=== PATIENT | male | born 1975 | race Caucasian/White ===

== ENCOUNTER 2022-11-17 18:34 | Emergency (ER) | payer OTHER, MEDICAID, SELFPAY ==
[2022-11-17 18:42] VITALS: BP 138/83; PULSE 85; RESP 14; TEMP 36.5; O2SAT 97
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
[2022-11-17 20:21] LABS: Basophils % 0.4 %; Eosinophils # 0.3 10^3/uL (0.0-0.8); Eosinophils % 5.2 %; Hemoglobin 13.3 g/dL (11.7-16.6); Lymphocytes # 1.2 10^3/uL (0.8-4.8); Mean Corpuscular HGB Conc 34.1 g/dL (30.0-36.0); Mean Corpuscular Hemoglobin 30.4 pg (28.0-34.0); Mean Corpuscular Volume 89.2 fl (80-94); Mean Platelet Volume 10.2 fL (7.4-10.4); Monocytes # 0.5 10^3/uL (0.2-0.9); Monocytes % 10.7 %; Neutrophils % 58.5 %; Nucleated Red Blood Cells % 0 %; Platelet Count 216 10^3/cmm (130-400); Red Blood Count 4.37 10^6/uL (4.1-5.3); Red Cell Distribution Width 12.8 % (12.1-15.1)
[2022-11-17] MEDS: HYDROcodone-acetaminophen 5-325 mg Tablet 1 TAB PO (20:28)
[2022-11-17 20:39] LABS: Alanine Aminotransferase 17 U/L (0-41); Alkaline Phosphatase 99 U/L (40-130); Anion Gap 12.5 (5-19); Aspartate Amino Transferase 21 U/L (0-40); Blood Urea Nitrogen 14 mg/dL (6-20); Calcium 8.9 mg/dL (8.5-10.5); Carbon Dioxide 27 mmol/L (22-29); Chloride 107 mmol/L (98-107); Globulin 2.6 g/dL (1.3-4.6); Glomerular Filtration Rate 90.4 mL/min (90-130); Glucose 93 mg/dL (65-115); Lactate (Lactic Acid level) 1.3 mmol/L (0.5-2.2); Osmolality Calculated 294 mOsm/kg (285-295); Potassium 4.5 mmol/L (3.5-5.1); Sodium 142 mmol/L (136-145); Total Bilirubin 0.2 mg/dL (0.15-1.2); Total Protein 6.6 g/dL (6.6-8.7)
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
[2022-11-17] MEDS: clindamycin 150 mg Capsule 300 MG PO (20:58)
[2022-11-17] MEDS: tetanus-dipt-pertussis 0.5 mL SDV IM (20:59)
--- NOTE | 2022-11-18 09:43 | DCPLANNER ---
Addendum entered by Angela Dobbs 12/04/22 10:58: Patient had a follow up appointment scheduled with ortho - patient did attend appointment. Addendum entered by Angela Dobbs 11/24/22 14:50: Patient has a follow up appointment scheduled for , November 26, 2022 at 3:[address] Arreola at ortho. Clinic will call patient with appointment information. Original Note: meat market manager had message to schedule a follow up appointment for patient with ortho. meat market manager sent patients information to the front office staff at ortho. Patients information will be printed and reviewed. Clinic will call patient with appointment information.
== END 2022-11-17 21:03 | disposition home or self-care (01) ==
PROVIDERS: Emergency Provider Nurse Practitioner Family
DX: L03.011 Cellulitis of right finger (principal); Z23 Encounter for immunization
CPT/HCPCS: 26010; 73140; 80053; 83605; 85025; 87070; 87077; 87186; 90471; 90715; 99284

== ENCOUNTER 2022-11-19 03:25 | Emergency (ER) | payer OTHER, MEDICAID, SELFPAY ==
[2022-11-19 03:34] VITALS: BP 136/89; PULSE 84; RESP 20; TEMP 37.2; O2SAT 98; BMI 23.0
--- NOTE | 2022-11-19 03:40 | W.ED.SKABFB ---
HPI - Skin/Abscess/Foreign Bdy General: Chief complaint: Skin/Abscess/Foreign Body Stated complaint: Finger Infected, CP Time Seen by Provider: 11/19/22 03:27 Source: patient Mode of arrival: ambulatory Limitations: no limitations History of Present Illness: 47-year-old male states he has had swelling to his right middle finger over the last 3 weeks he appears to have an abscess over the PIP joint he states that he has tried to put a needle in it at home patient was seen here 2 days ago started on clindamycin he has had increasing pain no fever. Associated symptoms: Deny chills, fever(s), nausea or vomiting Review of Systems Const: Denies: fever(s), chills, body aches or change in appetite Eyes: Denies: blurry vision or eye discomfort ENMT: Denies: throat pain or dental pain Card: Denies: chest pain Resp: Denies: dyspnea GI: Denies: abdominal pain, nausea, vomiting or diarrhea : Denies: dysuria Musc: Reports: extremity pain Skin/Breast: Denies: rash Neuro: Denies: headache(s) Psych: Denies: depression Reji/Lymph: Denies: easy bruising All/Imm: Denies: urticaria PFSH ED PFSH: Medical History (Updated 11/19/22 @ 04:29 by Gail Foley MD) No pertinent past medical history Social History (Updated 11/19/22 @ 03:42 by Gail Foley MD) Substance/Drug Use: unknown Physical Exam Const: COMMON NORMALS: patient oriented x3 HENMT: COMMON NORMALS: normocephalic and atraumatic HEAD & SCALP: normocephalic and atraumatic Eye: COMMON NORMALS: Equal, round and reactive pupils present and EOMs intact bilaterally PUPIL: Yes Equal, round and reactive pupils present Neck/C-Spine: COMMON NORMALS: full ROM and supple Chest: COMMONS NORMALS: normal inspection of the chest and normal palpation of entire chest wall Resp: COMMON NORMALS: normal respiratory effort, No retractions, No use of accessory muscles and clear to auscultation bilaterally AUSCULTATION: clear to auscultation bilaterally Cardio: COMMON NORMALS: regular rate, regular rhythm and No murmurs present (Cardio) RATE: regular rate RHYTHM: regular rhythm GI: COMMON NORMALS: Normal to inspection, nondistended, normoactive bowel sounds present, Soft to palpation, non-tender and no masses PALPATION: Yes Soft to palpation Extremity: COMMON NORMALS: full ROM NARRATIVE EXTREMITY EXAM: Swelling to right middle finger at the PIP joint with an abscess Neuro: COMMON NORMALS: patient oriented x3, moves all extremities and no focal motor deficits Psych: COMMON NORMALS: mental status grossly normal, Normal thought process present and cooperative THOUGHT PROCESS: Normal thought process present Skin: COMMON NORMALS: no rashes or lesions noted and no wounds GENERAL SKIN EXAM: no rashes or lesions noted Procedures Abscess I/D Site: hand Side (if applicable): right Local Anesthetic: lidocaine 1% Amount of anesthesia used (mL): 5 Technique: incised with #11 blade Packing used?: none Course Vital Signs: Vital signs: Vital Signs Temperature 98.9 F 11/19/22 03:34 Pulse Rate 84 11/19/22 03:34 Respiratory Rate 20 H 11/19/22 03:34 Blood Pressure 136/89 11/19/22 03:34 Pulse Oximetry 98 11/19/22 03:34 Oxygen Delivery Me thod 11/19/22 03:34 MDM - Skin/Abscess/Foreign Bdy Medicial Decision Making Patient presents here with abscess to right middle finger I incised and drained the abscess he is inflammatory markers are normal he stable for discharge he is to follow-up with orthopedics return if worsening. Lab Data 11/19/22 03:52 11/19/22 03:52 Laboratory Results WBC 4.0 10^3/uL (4.0-10.0) 11/19/22 03:52 RBC 4.66 10^6/uL (4.1-5.3) 11/19/22 03:52 Hgb 13.8 g/dL (11.7-16.6) 11/19/22 03:52 Hct 42.0 % (42.0-52.0) 11/19/22 03:52 MCV 90.1 fl (80-94) 11/19/22 03:52 MCH 29.6 pg (28.0-34.0) 11/19/22 03:52 MCHC 32.9 g/dL (30.0-36.0) 11/19/22 03:52 RDW 13.0 % (12.1-15.1) 11/19/22 03:52 Plt Count 203 10^3/cmm (130-400) 11/19/22 03:52 MPV 10.1 fL (7.4-10.4) 11/19/22 03:52 Neut % (Auto) 43.5 % 11/19/22 03:52 Lymph % (Auto) 35.9 % 11/19/22 03:52 [place] % (Auto) 12.0 % 11/19/22 03:52 Eos % (Auto) 7.7 % 11/19/22 03:52 Baso % (Auto) 0.7 % 11/19/22 03:52 Neut # (Auto) 1.74 10^3/uL (1.8-7.7) L 11/19/22 03:52 Lymph # (Auto) 1.4 10^3/uL (0.8-4.8) 11/19/22 03:52 [place] # (Auto) 0.5 10^3/uL (0.2-0.9) 11/19/22 03:52 Eos # (Auto) 0.3 10^3/uL (0.0-0.8) 11/19/22 03:52 Baso # (Auto) 0.0 10^3/uL (0.0-0.1) 11/19/22 03:52 Nucleated RBC % (auto) 0 % 11/19/22 03:52 Nucleated RBCs # 0.0 /100WBC 11/19/22 03:52 ESR 4 mm/hr (0-10) 11/19/22 03:52 Sodium 140 mmol/L (136-145) 11/19/22 03:52 Potassium 3.9 mmol/L (3.5-5.1) 11/19/22 03:52 Chloride 102 mmol/L (98-107) 11/19/22 03:52 Carbon Dioxide 29 mmol/L (22-29) 11/19/22 03:52 Anion Gap 12.9 (5-19) 11/19/22 03:52 BUN 12 mg/dL (6-20) 11/19/22 03:52 Creatinine 0.8 mg/dL (0.7-1.2) 11/19/22 03:52 GFR Calculation 103.6 mL/min (90-130) 11/19/22 03:52 Glucose 98 mg/dL (65-115) 11/19/22 03:52 Calculated Osmolality 290 mOsm/kg (285-295) 11/19/22 03:52 Calcium 9.4 mg/dL (8.5-10.5) 11/19/22 03:52 Total Bilirubin 0.2 mg/dL (0.15-1.2) 11/19/22 03:52 AST 24 U/L (0-40) 11/19/22 03:52 ALT 23 U/L (0-41) 11/19/22 03:52 Alkaline Phosphatase 93 U/L (40-130) 11/19/22 03:52 C-Reactive Protein 6.9 mg/L (0.0-4.9) H 11/19/22 03:52 Total Protein 6.9 g/dL (6.6-8.7) 11/19/22 03:52 Albumin 4.1 g/dL (3.5-5.2) 11/19/22 03:52 Globulin 2.8 g/dL (1.3-4.6) 11/19/22 03:52 Discharge Plan Discharge Patient Disposition: Home Clinical Impression: Abscess of finger Condition: Stable Prescriptions: No Action clindamycin HCl 300 mg capsule 300 mg PO TID 10 Days Qty: 30 0RF Discharge Orders: Discharge ED (Routine); Ordered 11/19/22 Ordered By: Gail Foley Referrals: Hoang Arreola DO [Physician] - 1-3 days Discharge Diet: Advance as tolerated Discharge Activity: Resume usual activity Patient Instructions: Abscess (ED) Coding Level of Care Code ED Gear Milling Machine Set Up Operator for Chg Fwd Exam Comprehensive
[2022-11-19] MEDS: vancomycin 1,000 MG in sodium chloride 0.9% 250 ML 250 MG IV (03:55)
[2022-11-19 03:59] LABS: Basophils % 0.7 %; Eosinophils # 0.3 10^3/uL (0.0-0.8); Eosinophils % 7.7 %; Hemoglobin 13.8 g/dL (11.7-16.6); Lymphocytes # 1.4 10^3/uL (0.8-4.8); Lymphocytes % 35.9 %; Mean Corpuscular HGB Conc 32.9 g/dL (30.0-36.0); Mean Corpuscular Hemoglobin 29.6 pg (28.0-34.0); Mean Corpuscular Volume 90.1 fl (80-94); Mean Platelet Volume 10.1 fL (7.4-10.4); Monocytes # 0.5 10^3/uL (0.2-0.9); Neutrophils # 1.74 10^3/uL (1.8-7.7); Neutrophils % 43.5 %; Nucleated Red Blood Cells % 0 %; Platelet Count 203 10^3/cmm (130-400); Red Blood Count 4.66 10^6/uL (4.1-5.3)
[2022-11-19 04:00] LABS: Erythrocyte Sedimentation Rate 4 mm/hr (0-10)
[2022-11-19 04:14] LABS: Alanine Aminotransferase 23 U/L (0-41); Albumin Level 4.1 g/dL (3.5-5.2); Alkaline Phosphatase 93 U/L (40-130); Anion Gap 12.9 (5-19); Aspartate Amino Transferase 24 U/L (0-40); Blood Urea Nitrogen 12 mg/dL (6-20); C Reactive Protein 6.9 mg/L (0.0-4.9); Calcium 9.4 mg/dL (8.5-10.5); Carbon Dioxide 29 mmol/L (22-29); Chloride 102 mmol/L (98-107); Globulin 2.8 g/dL (1.3-4.6); Glomerular Filtration Rate 103.6 mL/min (90-130); Glucose 98 mg/dL (65-115); Osmolality Calculated 290 mOsm/kg (285-295); Potassium 3.9 mmol/L (3.5-5.1); Sodium 140 mmol/L (136-145); Total Bilirubin 0.2 mg/dL (0.15-1.2); Total Protein 6.9 g/dL (6.6-8.7)
[2022-11-19 05:08] VITALS: BP 128/82; PULSE 82; RESP 18; O2SAT 98
--- NOTE | 2022-11-19 09:12 | DCPLANNER ---
incident manager had message to schedule a follow up appointment for patient with ortho. incident manager has referred patient to ortho from previous visit on 11.17.22. incident manager sent patients information to the front office staff at ortho. incident manager received the following message from the ortho clinic regarding referral: attempt made to contact patient - a woman answered the line and said he wasn't there, i tried to ask her to have him call us but the connection was bad and she hung up. tried to call again no answer. i will mail a letter to call our office to schedule incident manager did call patients phone number [phone], unable to speak with patient, a voicemail was left for patient to return case consultant phone call.
--- NOTE | 2022-11-20 20:28 | PC.NURSE ---
Informed of patient + staph aureus results. I have spoken with Dr. Sawyer and physician states that patient in on adequate antibiotics and no further order is needed.
== END 2022-11-19 05:10 | disposition home or self-care (01) ==
PROVIDERS: Emergency Provider Emergency Medicine
DX: L02.511 Cutaneous abscess of right hand (principal)
CPT/HCPCS: 26010; 80053; 85025; 85651; 86140; 96365; 99285; J3370; J3490; J7050

== ENCOUNTER → 2022-12-16 10:02 | Outpatient (BNVA) | payer OTHER, MEDICAID, SELFPAY | PROVIDERS: Visit Provider Nurse Practitioner Family | DX: L03.011 Cellulitis of right finger (principal); M25.471 Effusion, right ankle; M25.472 Effusion, left ankle; M79.644 Pain in right finger(s); F19.90 Other psychoactive substance use, unspecified, uncomplicated | CPT/HCPCS: 80053; 85025 ==

== ENCOUNTER → 2023-03-24 12:26 | Outpatient (BNVA) | payer BC, MEDICAID, SELFPAY | PROVIDERS: Visit Provider Nurse Practitioner Family | DX: J45.909 Unspecified asthma, uncomplicated (principal); M54.50 Low back pain, unspecified; G89.29 Other chronic pain; R07.9 Chest pain, unspecified; Z79.899 Other long term (current) drug therapy | CPT/HCPCS: 80053; 80061; 82306; 82607; 83735; 84443; 85025 ==

== ENCOUNTER 2023-04-25 20:45 | Emergency (ER) | payer BC, MEDICAID, SELFPAY ==
[2023-04-25] VITALS (7 sets, daily range): BP systolic 121–137; BP diastolic 66–82; PULSE 68–88; RESP 18–20; TEMP 38.3; O2SAT 94–96; BMI 23.1
--- NOTE | 2023-04-25 20:55 | XRR_ITS ---
PROCEDURE INFORMATION: Exam: XR Chest Exam date and time: 04/25/2023 9:04 PM Age: 48 years old Clinical indication: Cough and fever; Additional info: Fever, cough TECHNIQUE: Imaging protocol: Radiologic exam of the chest. Views: 1 view. COMPARISON: No relevant prior studies available. FINDINGS: Lungs: Unremarkable. No consolidation. Pleural spaces: Unremarkable. No pleural effusion. No pneumothorax. Heart/Mediastinum: Unremarkable. No cardiomegaly. Bones/joints: Unremarkable. XR/XR chest 1V portable [id number] IMPRESSION: No acute findings.
--- NOTE | 2023-04-25 20:58 | W.ED.CHESTPA ---
HPI - Chest Pain General: Chief Complaint: Chest Pain Stated Complaint: CP, body aches Time Seen by Provider: 04/25/23 20:54 History of Present Illness: 48-year-old male patient comes in today with complaints of chest discomfort and fever with cough. Patient reports has felt really poorly all day. Patient has a history of COPD/asthma. Patient appears nontoxic. Patient appears in mild to moderate pain. Patient is a chronic smoker. Patient has chest wall tenderness on palpation in the left anterior ribs. Associated symptoms: Reports fever(s); Deny abdominal pain or dyspnea Review of Systems Const: Reports: fever(s) Eyes: Denies: eye discomfort ENMT: Denies: throat pain Card: Reports: chest pain Resp: Denies: dyspnea GI: Denies: abdominal pain : Denies: flank pain Musc: Denies: back pain or extremity pain Skin/Breast: Denies: rash PFSH ED PFSH: Medical History Asthma Central slip extensor tendon injury ([place]) GERD (gastroesophageal reflux disease) Hepatitis C was treated in 2016 No pertinent past medical history Psychiatric care Social History Substance/Drug Use: former Date of last use: 2 MONTHS AGO, METH Household members: significant other Marital status: Life Partner Current occupational status: employed Current occupation: [employer] Current gender identity: Male Special miguelangel needs: No Physical Exam Const: COMMON NORMALS: alert HENMT: COMMON NORMALS: normocephalic HEAD & SCALP: normocephalic Neck/C-Spine: COMMON NORMALS: full ROM Chest: COMMONS NORMALS: normal palpation of entire chest wall Resp: EFFORT & INSPECTION: Yes able to speak in complete sentences AUSCULTATION: wheezes and diminished lung sounds Cardio: COMMON NORMALS: regular rate and regular rhythm RATE: regular rate RHYTHM: regular rhythm GI: COMMON NORMALS: non-tender Extremity: COMMON NORMALS: no pedal edema Neuro: SENSORIUM/ORIENTATION: Yes alert Skin: COMMON NORMALS: turgor normal GENERAL SKIN EXAM: turgor normal Course Vital Signs: Vital signs: Vital Signs Temperature 100.9 F H 04/25/23 20:47 Pulse Rate 68 04/25/23 22:09 Respiratory Rate 20 H 04/25/23 22:09 Blood Pressure 130/66 04/25/23 20:47 Pulse Oximetry 96 04/25/23 22:09 Oxygen Delivery Me thod Nasal Cannula 04/25/23 22:09 Oxygen Flow Rate 2 04/25/23 22:09 MDM - Chest Pain Medical Decision Making 48-year-old male patient comes in today with complaints of cough, chest wall tenderness, and fever starting yesterday. On exam patient appears nontoxic. Patient appears in mild discomfort. Patient has chest wall tenderness on palpation of the left anterior chest wall. Patient has wheezing throughout lung dimas with decreased air movement. Vital signs notes a temperature of 100.9, 94% on room air, pulse rate is normal, blood pressure is normal. Differential diagnosis includes pneumonia, CHF, exacerbation of COPD/asthma. CBC was unremarkable. CMP was normal except for some mild elevation in AST and ALT's which could be reactive to a viral illness. CRP was 55. Respiratory 2 panel was sent to lab and was outstanding at discharge. Chest x-ray showed no acute abnormalities. Believe the patient probably has acute bronchitis with asthma exacerbation. Patient will be started on doxycycline, and prednisone. Patient was continued with his routine medications for his asthma. Patient was given IV fluids along with initial IV dose of doxycycline in the ER. Patient was also given a dose of dexamethasone and medication for pain. Patient had some improvement of symptoms but still felt ill. Reassured patient expecting to be worse for the first 2 to 3 days but then should still have steady improvement. Patient can call back to get final results of the respiratory panel. Patient was recommended to return to the ER for worsening symptoms or new concerns. Lab Data 04/25/23 21:03 04/25/23 21:03 Radiology Impressions Chest X-Ray 04/25/23 20:55 IMPRESSION: No acute findings. Laboratory Results WBC 9.9 10^3/uL (4.0-10.0) 04/25/23 21:03 RBC 4.60 10^6/uL (4.1-5.3) 04/25/23 21:03 Hgb 13.8 g/dL (11.7-16.6) 04/25/23 21:03 Hct 40.9 % (42.0-52.0) L 04/25/23 21:03 MCV 88.9 fl (80-94) 04/25/23 21:03 MCH 30.0 pg (28.0-34.0) 04/25/23 21:03 MCHC 33.7 g/dL (30.0-36.0) 04/25/23 21:03 RDW 12.7 % (12.1-15.1) 04/25/23 21:03 Plt Count 150 10^3/cmm (130-400) 04/25/23 21:03 MPV 10.6 fL (7.4-10.4) H 04/25/23 21:03 Neut % (Auto) 87.7 % 04/25/23 21:03 Lymph % (Auto) 5.6 % 04/25/23 21:03 [place] % (Auto) 5.4 % 04/25/23 21:03 Eos % (Auto) 0.7 % 04/25/23 21:03 Baso % (Auto) 0.2 % 04/25/23 21:03 Neut # (Auto) 8.65 10^3/uL (1.8-7.7) H 04/25/23 21:03 Lymph # (Auto) 0.6 10^3/uL (0.8-4.8) L 04/25/23 21:03 [place] # (Auto) 0.5 10^3/uL (0.2-0.9) 04/25/23 21:03 Eos # (Auto) 0.1 10^3/uL (0.0-0.8) 04/25/23 21:03 Baso # (Auto) 0.0 10^3/uL (0.0-0.1) 04/25/23 21:03 Nucleated RBC % (auto) 0 % 04/25/23 21: Nucleated RBCs # 0.0 /100WBC 04/25/23 21:03 Sodium 136 mmol/L (136-145) 04/25/23 21:03 Potassium 4.0 mmol/L (3.5-5.1) 04/25/23 21:03 Chloride 102 mmol/L (98-107) 04/25/23 21:03 Carbon Dioxide 24 mmol/L (22-29) 04/25/23 21:03 Anion Gap 14.0 (5-19) 04/25/23 21:03 BUN 9 mg/dL (6-20) 04/25/23 21:03 Creatinine 0.8 mg/dL (0.7-1.2) 04/25/23 21:03 GFR Calculation 103.2 mL/min (90-130) 04/25/23 21:03 Glucose 121 mg/dL (65-115) H 04/25/23 21:03 Calculated Osmolality 282 mOsm/kg (285-295) L 04/25/23 21:03 Calcium 8.4 mg/dL (8.5-10.5) L 04/25/23 21:03 Total Bilirubin 0.4 mg/dL (0.15-1.2) 04/25/23 21:03 AST 64 U/L (0-40) H 04/25/23 21:03 ALT 119 U/L (0-41) H 04/25/23 21:03 Alkaline Phosphatase 69 U/L (40-130) 04/25/23 21:03 Troponin T Gen 5 ng/L 7 ng/L (0-15) 04/25/23 21:03 C-Reactive Protein 58.4 mg/L (0.0-4.9) H 04/25/23 21:03 Total Protein 6.8 g/dL (6.6-8.7) 04/25/23 21:03 Albumin 4.1 g/dL (3.5-5.2) 04/25/23 21:03 Globulin 2.7 g/dL (1.3-4.6) 04/25/23 21:03 EKG Data EKG 1: EKG interpretation date: 04/25/23 EKG interpretation time: 21:10 Interpretation: EKG shows a sinus rhythm with no ST elevation or ectopy noted. Regular rate is noted at 79 bpm. No prior exam was available for comparison. No signs of ischemic changes was noted. Discharge Plan Discharge Patient Disposition: Home Clinical Impression: Acute lower respiratory infection Asthma Qualifiers: Asthma severity: moderate Asthma persistence: persistent Asthma complication type: unspecified Qualified Code(s): J45.40 - Moderate persistent asthma, uncomplicated Condition: Stable Prescriptions: New doxycycline monohydrate 100 mg capsule 100 mg PO BID 7 Days Qty: 14 0RF prednisone 20 mg tablet 20 mg PO BID 3 Days Qty: 6 0RF hydrocodone-acetaminophen 5-325 mg tablet 1 tab PO Q8H PRN (Reason: pain (scale score 7-10)) Qty: 7 0RF No Action levalbuterol tartrate [Xopenex HFA] 45 mcg/actuation HFA aerosol inhaler 2 inh inhalation Q6H Qty: 15 2RF fluticasone propion-salmeterol [Advair Diskus] 250-50 mcg/dose blister with device 1 inh inhalation BID Qty: 60 2RF gabapentin 300 mg capsule 300 mg PO BID Qty: 60 2RF hydroxyzine HCl 50 mg tablet 50 mg PO QID PRN (Reason: anxiety) Qty: 30 1RF fluoxetine [Prozac] 20 mg capsule 20 mg PO DAILY Qty: 30 1RF mirtazapine 7.5 mg tablet 7.5 mg PO .HS Qty: 30 1RF nicotine 21-14-7 mg/24 hr patch, TD daily, sequential See Rx Instructions transdermal .COMPLEX Qty: 56 0RF Rx Instructions: apply 1-21 mg NICOTINE PATCH daily for 28 days; follow with 1-14 mg PATCH daily for 14 days, then 1-7mg PATCH daily for 14 days transdermal triamcinolone acetonide 0.1 % cream 1 applic topical BID 14 Days Qty: 80 0RF tamsulosin 0.4 mg capsule 0.4 mg PO DAILY Qty: 30 0RF omeprazole 20 mg capsule,delayed release(DR/EC) 20 mg PO BID Qty: 60 1RF cholecalciferol (vitamin D3) 1,250 mcg (50,000 unit) capsule 50,000 unit PO .WEEKLY Qty: 4 2RF Discharge Orders: Discharge ED (Routine); Ordered 04/25/23 Ordered By: Raul Burkett Referrals: Daniela Schmid FNP [Primary Care Provider] - Discharge Diet: Usual diet Discharge Activity: Increase activity as tolerated Patient Instructions: Acute Bronchitis (ED) Activity Restrictions/Additional Instructions: Home and rest. Drink plenty of water and fluids. Use acetaminophen and ibuprofen to control fever. Take antibiotic as directed. Continue with routine inhalers as directed. Follow-up with primary care. Return to ED for worsening symptoms such as increasing shortness of breath, inability to hold fluids down, or new concerns. 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
--- NOTE | 2023-04-25 21:00 | ECG_ITS ---
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 Measurements Intervals [place] Rate: 79 P: 66 NH: 140 QRS: 70 QRSD: 85 T: 69 QT: 371 QTc: 426 Interpretive Statements SINUS RHYTHM No previous ECG available for comparison Electronically Signed On 04-26-2023 23:29:54 CDT by Ramy Gastelum M.D. [id number]
[2023-04-25 21:20] LABS: Basophils % 0.2 %; Eosinophils # 0.1 10^3/uL (0.0-0.8); Eosinophils % 0.7 %; Hematocrit 40.9 % (42.0-52.0); Hemoglobin 13.8 g/dL (11.7-16.6); Lymphocytes # 0.6 10^3/uL (0.8-4.8); Lymphocytes % 5.6 %; Mean Corpuscular HGB Conc 33.7 g/dL (30.0-36.0); Mean Corpuscular Volume 88.9 fl (80-94); Mean Platelet Volume 10.6 fL (7.4-10.4); Monocytes # 0.5 10^3/uL (0.2-0.9); Monocytes % 5.4 %; Neutrophils # 8.65 10^3/uL (1.8-7.7); Neutrophils % 87.7 %; Nucleated Red Blood Cells % 0 %; Platelet Count 150 10^3/cmm (130-400); Red Cell Distribution Width 12.7 % (12.1-15.1); White Blood Count 9.9 10^3/uL (4.0-10.0)
[2023-04-25] MEDS: sodium chloride 0.9% 1,000 ML 999 ML IV (21:42)
[2023-04-25] MEDS: dexamethasone 10 mg/mL INJ IVP (21:43)
[2023-04-25 21:44] LABS: Alanine Aminotransferase 119 U/L (0-41); Albumin Level 4.1 g/dL (3.5-5.2); Alkaline Phosphatase 69 U/L (40-130); Aspartate Amino Transferase 64 U/L (0-40); Blood Urea Nitrogen 9 mg/dL (6-20); C Reactive Protein 58.4 mg/L (0.0-4.9); Calcium 8.4 mg/dL (8.5-10.5); Carbon Dioxide 24 mmol/L (22-29); Chloride 102 mmol/L (98-107); Globulin 2.7 g/dL (1.3-4.6); Glomerular Filtration Rate 103.2 mL/min (90-130); Glucose 121 mg/dL (65-115); Osmolality Calculated 282 mOsm/kg (285-295); Sodium 136 mmol/L (136-145); Total Bilirubin 0.4 mg/dL (0.15-1.2); Total Protein 6.8 g/dL (6.6-8.7)
[2023-04-25] MEDS: doxycycline 100 MG in sodium chloride 0.9% (plus) 100 ML IV (21:44)
[2023-04-25 21:45] LABS: Troponin T (5th) Once 7 ng/L (0-15)
[2023-04-25] MEDS: ketorolac 30 mg/mL INJ 15 MG IVP (21:47)
[2023-04-25] MEDS: ipratropium-albuterol 3 mL Neb INHALATION (22:02)
[2023-04-25] MEDS: HYDROcodone-acetaminophen 7.5-325 mg Tablet 1 TAB PO (23:12)
[2023-04-26 00:07] LABS: Adenovirus Not Detected (NOT DETECT); Chlamydia Pneumoniae Not Detected (NOT DETECT); Coronavirus 229E,HKU1,NL63,OC4 Not Detected (NOT DETECT); Human Metapneumovirus Not Detected (NOT DETECT); Human Rhinovirus/Enterovirus Not Detected (NOT DETECT); Influenza A Not Detected (NOT DETECT); Influenza A H1 Not Detected (NOT DETECT); Influenza A H1-2009 Not Detected (NOT DETECT); Influenza A H3 Not Detected (NOT DETECT); Influenza B Not Detected (NOT DETECT); Mycoplasma Pneumoniae Not Detected (NOT DETECT); Parainfluenza Virus Type 1 Not Detected (NOT DETECT); Parainfluenza Virus Type 2 Not Detected (NOT DETECT); Parainfluenza Virus Type 3 Detected (NOT DETECT); Parainfluenza Virus Type 4 Not Detected (NOT DETECT); Respiratory Syncytial Virus A Not Detected (NOT DETECT); Respiratory Syncytial Virus B Not Detected (NOT DETECT); SARS-COV-2 Not Detected (NOT DETECT)
== END 2023-04-25 23:25 | disposition home or self-care (01) ==
PROVIDERS: Emergency Provider Nurse Practitioner Family; PCP Nurse Practitioner Family
DX: J45.40 Moderate persistent asthma, uncomplicated (principal); J22 Unspecified acute lower respiratory infection
CPT/HCPCS: 71045; 80053; 84484; 85025; 86140; 87486; 87581; 87633; 93005; 94640; 96361; 96365; 96375; 99285; J1100; J1885; J3490; J7030

== ENCOUNTER 2023-10-10 13:56 | Inpatient (IN) | payer BC, SELFPAY ==
[2023-10-10 13:56] VITALS: BP 169/83; PULSE 92; RESP 17; TEMP 37.1; O2SAT 97; BMI 25.7
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
[2023-10-10 14:34] LABS: Basophils % 0.3 %; Eosinophils # 0.2 10^3/uL (0.0-0.8); Eosinophils % 5.8 %; Hematocrit 43.2 % (37-53); Lymphocytes # 1.2 10^3/uL (0.8-4.8); Mean Corpuscular HGB Conc 33.6 g/dL (30-55); Mean Corpuscular Volume 89.4 fl (82-101); Mean Platelet Volume 10.4 fL (7.4-10.4); Monocytes # 0.4 10^3/uL (0.2-0.9); Monocytes % 11.3 %; Neutrophils # 1.49 10^3/uL (1.8-7.7); Neutrophils % 45.6 %; Nucleated Red Blood Cells % 0 %; Platelet Count 180 10^3/cmm (157-399); Red Blood Count 4.83 10^6/uL (3.85-5.65); Red Cell Distribution Width 12.8 % (12.1-15.1); White Blood Count 3.27 10^3/uL (3.29-11.43)
[2023-10-10 14:43] LABS: Alanine Aminotransferase 27 U/L (0-41); Albumin Level 4.5 g/dL (3.5-5.2); Alkaline Phosphatase 73 U/L (40-130); Anion Gap 16.1 (5-19); Aspartate Amino Transferase 25 U/L (0-40); Blood Urea Nitrogen 21 mg/dL (6-20); Calcium 9.4 mg/dL (8.5-10.5); Carbon Dioxide 22 mmol/L (22-29); Chloride 102 mmol/L (98-107); Globulin 2.5 g/dL (1.3-4.6); Glomerular Filtration Rate 79.8 mL/min (90-130); Glucose 89 mg/dL (65-115); Osmolality Calculated 284 mOsm/kg (285-295); Potassium 4.1 mmol/L (3.5-5.1); Sodium 136 mmol/L (136-145); Total Bilirubin 0.8 mg/dL (0.15-1.2)
[2023-10-10 14:44] LABS: Acetaminophen < 5.0 ug/mL (10-30); Alcohol Level < 10 mg/dL (0-10); Salicylate < 0.3 mg/dL (3-10)
[2023-10-10 15:43] LABS: Amphetamines Screen Urine Positive (Negative); Barbiturates Screen Urine Negative (Negative); Benzodiazepines Screen Urine Negative (Negative); Cocaine Screen Urine Negative (Negative); Opiate Screen Urine Negative (Negative); PCP Screen Urine Negative (Negative); THC Screen Urine Positive (Negative)
--- NOTE | 2023-10-10 15:47 | PC.NURSE ---
Attempted to read 96 hour hold rights to patient. Patient stated I am not fucking staying here, i lied to get away from my . This is fucking bullshit. This nurse told patient the physician has placed him on a 96 hour hold for his safety and asked to continue to read the rights. Patient stated No i dont fucking want those. Attempted to leave a copy at bedside, patient crumbled copy of 96 hour hold rights and threw in the trash.
[2023-10-10 16:35] VITALS: BP 146/82; PULSE 78; RESP 16; TEMP 36.7; O2SAT 98
[2023-10-10] MEDS: hyDROXYzine 25 mg Capsule 50 MG PO (17:29)
[2023-10-10] MEDS: nicotine 2 mg Gum BUCCAL ×2 (17:43→20:03)
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
[2023-10-10] MEDS: OLANZapine 5 mg ODT PO (20:03)
[2023-10-10] MEDS: diclofenac 75 mg DR Tablet PO (20:34)
[2023-10-10] MEDS: gabapentin 300 mg Capsule PO (20:35)
[2023-10-10 20:48] VITALS: BP 143/91; PULSE 88; RESP 18; TEMP 36.3; O2SAT 95
[2023-10-11 06:00] VITALS: BP 102/66; PULSE 58; RESP 16; O2SAT 98
[2023-10-11] MEDS: nicotine 21 mg Patch 1 PATCH TRANSDERMA (07:13)
[2023-10-11 09:01] VITALS: PULSE 62; RESP 18; O2SAT 98
[2023-10-11] MEDS: cetirizine 10 mg Tablet PO (09:14)
[2023-10-11] MEDS: gabapentin 300 mg Capsule PO ×3 (09:14→20:50)
[2023-10-11] MEDS: tamsulosin 0.4 mg Capsule PO (09:14)
[2023-10-11] MEDS: pantoprazole DR 40 mg Tablet PO (09:14)
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
[2023-10-11 13:33] VITALS: BP 150/67; PULSE 76; RESP 14; TEMP 36.4; O2SAT 97
[2023-10-11] MEDS: hyDROXYzine 25 mg Capsule 50 MG PO (14:06)
[2023-10-11] MEDS: OLANZapine 5 mg ODT PO ×2 (15:13→21:38)
[2023-10-11] MEDS: haloperidol 5 mg Tablet PO (16:49)
[2023-10-11] MEDS: nicotine 2 mg Gum BUCCAL (16:49)
--- NOTE | 2023-10-11 16:53 | PC.NURSE ---
PRN HALDOL 5 MG GIVEN PO PER PT C/O FURTHER AGITATION. STATED PRNS PREVIOUSLY GIVEN WERE NOT EFFECTIVE
[2023-10-11 20:13] VITALS: BP 112/70; PULSE 66; RESP 16; TEMP 36.8; O2SAT 95
[2023-10-11] MEDS: diclofenac 75 mg DR Tablet PO (20:47)
[2023-10-11] MEDS: ondansetron 4 MG Tablet PO (21:38)
[2023-10-12 06:00] VITALS: BP 99/58; PULSE 49; RESP 18; O2SAT 93
[2023-10-12] MEDS: cetirizine 10 mg Tablet PO (08:05)
[2023-10-12] MEDS: gabapentin 300 mg Capsule PO ×3 (08:05→20:48)
[2023-10-12] MEDS: pantoprazole DR 40 mg Tablet PO (08:05)
[2023-10-12] MEDS: tamsulosin 0.4 mg Capsule PO (08:05)
[2023-10-12] MEDS: nicotine 2 mg Gum BUCCAL ×2 (10:47→20:48)
--- NOTE | 2023-10-12 12:33 | P.NPUPN_ITS ---
Subjective NPU Subjective: Patient presented today lobbying for discharge but respecting our dialogue about reporting to a physician that he is suicidal with a history of suicide attempt expected get out of the hospital quickly. We discussed him being discharged in the next 48 hours and likely tomorrow. Mental Status Exam MSE Comments: This is a well-nourished well-developed white male in hospital scrubs with adequate grooming and eye contact. No abnormal movements except for mild psychomotor agitation. Cooperative with exam in mild distress. Speech was slightly increased rate and volume. Mood described as a little irritable. Affect congruent. Thought process organized. Thought content: Patient denied suicidal or homicidal ideation, there were no delusions reported or noted, he denies any auditory or visual hallucinations. Attention and concentration were intact and memory appeared unreliable but likely purposefully so but none were formally tested. He is alert and oriented x3. Insight and judgment limited impulse control impaired. Vitals/I&O/Wt Last Vital Signs Temp 98.2 F 10/11/23 20:13 Pulse 49 L 10/12/23 06:00 Resp 18 10/12/23 06:00 BP 99/58 10/12/23 06:00 Pulse Ox 93 10/12/23 06:00 O2 Del Method Room Air 10/11/23 09:01 Weight last 48 hrs Weight 90.718 kg Data NPU 10/10/23 14:16 10/10/23 14:16 A&P Assessment and plan (1) Suicidal ideation: (2) Moderate episode of recurrent major depressive disorder: (3) Methamphetamine use disorder, severe, in early remission: (4) Cannabis dependence: (5) Intermittent explosive disorder in adult: (6) Generalized anxiety disorder: Plan This is a 48 -year-old, white male, with 1 past hospitalization in 1997 who presents with recent relapse and moved to this area reportedly with past pr escription of Klonopin that made everything fine but unable to get anyone to prescribe here reporting he said what he said about lethality in the emergency department in hopes of getting Klonopin. 1. Continue current medication. 2. Encourage individual, group, and milieu therapy. 3. Continue q-15-minute checks for safety. 4.?Encourage sober living treatment after discharge at the highest level care to which he is willing to commit. Involuntary Hold Information 96 Hour Hold: 96 Hour Involuntary Admission: Yes 96 Hour Hold Ending Date: 10/15/23 96 Hour Hold Ending Time: 00:01 Attestations NPU Medical Necessity Statement*: Inpatient hospitalization is medically necessary and the clinically appropriate intervention, at this time. We will monitor medications and make changes as indicated. Likely length of stay is 1-3 days. Coding Level of Care Code Acute Code for Chg Fwd Diagnoses Suicidal ideation R45.851 Moderate episode of recurrent major depressive disorder F33.1 Methamphetamine use disorder, severe, in early remission F15.21 Cannabis dependence F12.20 Intermittent explosive disorder in adult F63.81 Generalized anxiety disorder F41.1
[2023-10-12 14:00] VITALS: BP 117/77; PULSE 63; RESP 16; TEMP 36.7; O2SAT 97
[2023-10-12 20:48] VITALS: BP 108/64; PULSE 64; RESP 16; O2SAT 96
[2023-10-13 06:00] VITALS: BP 101/73; PULSE 87; RESP 16; O2SAT 97
[2023-10-13] MEDS: gabapentin 300 mg Capsule PO ×2 (09:50→14:59)
[2023-10-13] MEDS: cetirizine 10 mg Tablet PO (09:50)
[2023-10-13] MEDS: tamsulosin 0.4 mg Capsule PO (09:50)
[2023-10-13] MEDS: pantoprazole DR 40 mg Tablet PO (09:50)
[2023-10-13] MEDS: hyDROXYzine 25 mg Capsule 50 MG PO (09:55)
[2023-10-13] MEDS: nicotine 2 mg Gum BUCCAL ×3 (09:55→15:40)
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
[2023-10-13 11:08] VITALS: BP 101/73; PULSE 87; RESP 16; O2SAT 97
[2023-10-13 14:00] VITALS: BP 113/71; PULSE 73; RESP 20; TEMP 36.6; O2SAT 99
[2023-10-13] MEDS: OLANZapine 5 mg ODT PO (16:07)
== END 2023-10-13 17:02 | disposition home or self-care (01) | DRG 897 ==
LOC: ER 14:42 → NP 15:29
PROVIDERS: Admitting Provider Psychiatry & Neurology Psychiatry; Emergency Provider Physician Assistant; PCP Nurse Practitioner Family; Visit Provider Psychiatry & Neurology Psychiatry
DX: F15.21 Other stimulant dependence, in remission (principal); R45.851 Suicidal ideations; Z59.00 Homelessness unspecified
CPT/HCPCS: 36415; 80053; 80306; 80307; 85025; 97165; 99285; J3535; Q0162

== ENCOUNTER 2024-11-25 14:38 | Emergency (ER) | payer BC, MEDICAID, SELFPAY ==
[2024-11-25 14:48] VITALS: BP 156/78; PULSE 60; RESP 16; TEMP 36.5; O2SAT 98; BMI 25.0
[2024-11-25 15:46] LABS: Basophils % 0.8 %; Eosinophils # 0.2 10^3/uL (0.0-0.8); Eosinophils % 4.4 %; Hematocrit 43.9 % (37-53); Lymphocytes % 39.2 %; Mean Corpuscular HGB Conc 34.9 g/dL (30-55); Mean Corpuscular Hemoglobin 30.9 pg (27-33); Mean Corpuscular Volume 88.7 fl (82-101); Mean Platelet Volume 10.1 fL (7.4-10.4); Monocytes # 0.3 10^3/uL (0.2-0.9); Monocytes % 6.4 %; Neutrophils # 2.41 10^3/uL (1.8-7.7); Neutrophils % 48.4 %; Nucleated Red Blood Cells % 0 %; Platelet Count 203 10^3/cmm (157-399); Red Blood Count 4.95 10^6/uL (3.85-5.65); Red Cell Distribution Width 12.3 % (12.1-15.1); White Blood Count 4.98 10^3/uL (3.29-11.43)
[2024-11-25 16:02] LABS: Alanine Aminotransferase 18 U/L (0-41); Albumin Level 4.4 g/dL (3.5-5.2); Alkaline Phosphatase 89 U/L (40-130); Anion Gap 16.1 (5-19); Aspartate Amino Transferase 16 U/L (0-40); Blood Urea Nitrogen 14 mg/dL (6-20); Carbon Dioxide 25 mmol/L (22-29); Chloride 104 mmol/L (98-107); Creatinine Clr Calc Pharmacy 82.3476; Globulin 2.3 g/dL (1.3-4.6); Glomerular Filtration Rate 58.7 mL/min (90-130); Glucose 99 mg/dL (65-115); Lipase 23 U/L (13-60); Osmolality Calculated 293 mOsm/kg (285-295); Potassium 4.1 mmol/L (3.5-5.1); Sodium 141 mmol/L (136-145); Total Bilirubin 0.2 mg/dL (0.15-1.2); Total Protein 6.7 g/dL (6.6-8.7)
--- NOTE | 2024-11-25 16:40 | CTR_ITS ---
PROCEDURE INFORMATION: Exam: CT Abdomen And Pelvis With Contrast Exam date and time: 11/25/2024 4:59 PM Age: 49 years old Clinical indication: Abdominal pain; Generalized; Additional info: Abd pain TECHNIQUE: Imaging protocol: Computed tomography of the abdomen and pelvis with contrast. Radiation optimization: All CT scans at this facility use at least one of these dose optimization techniques: automated exposure control; mA and/or kV adjustment per patient size (includes targeted exams where dose is matched to clinical indication); or iterative reconstruction. Contrast material: OMNIPAQUE 350; Contrast volume: 100 ml; Contrast route: INTRAVENOUS (IV); COMPARISON: CR XR chest 1V portable [id number] 04/25/2023 9:04 PM RADIATION DOSE METRICS: Total DLP (mGy-cm): 752.43 FINDINGS: Lungs: Minimal dependent atelectasis is seen in the lung bases. Lung bases otherwise appear clear. Liver: Normal appearance of the liver. Gallbladder and biliary ducts: Normal appearance of the gallbladder. No radiopaque cholelithiasis. Pancreas: Normal appearance of the pancreas. No ductal dilation. Spleen: Calcifications are seen in the spleen suggesting sequelae of remote prior granulomatous disease. Small splenule. Adrenal glands: Normal appearance of both adrenal glands. Kidneys and ureters: Normal appearance of both kidneys. No evidence of nephrolithiasis or hydronephrosis. No renal mass or cyst is seen. Normal appearance of both ureters without hydroureter or ureteral stone. Stomach and bowel: Small hiatal hernia of the stomach and question of mild wall thickening of the distal esophagus.Normal appearance of the small bowel without luminal dilation suggested. Mild stool burden within the colon. No evidence of obstruction. There is mild scattered colonic diverticular disease without evidence of diverticulitis. Appendix: The patient is status post appendectomy. Intraperitoneal space: Unremarkable. No free air. No significant fluid collection. Vasculature: There is mild calcific atherosclerotic disease of the abdominal aorta. No evidence of an aneurysm. Lymph nodes: Unremarkable. No enlarged lymph nodes. Urinary bladder: Normal appearance of the urinary bladder. No intravesicular stone. Reproductive: Unremarkable appearance of the prostate. Bones/joints: Minimal scattered degenerative changes of the visualized spine. No aggressive osseous lesion or fracture is seen. There is sacralization of L5 on the left with pseudoarthrosis. Soft tissues: Small fatty left inguinal hernia. Small fatty umbilical hernia. CT/CT abdomen pelvis w con* [id number] IMPRESSION: 1. No definite acute intra-abdominal or pelvic pathology. There is suggestion of mild wall thickening in the distal esophagus and a small adjacent hiatal hernia of the stomach. Correlate clinically for evidence of an esophagitis. 2.Other incidental and/or chronic findings as detailed above.
[2024-11-25 16:52] VITALS: BP 134/81; PULSE 76; RESP 17; O2SAT 94; O2SAT 98
[2024-11-25] MEDS: ondansetron 2 mg/ML SDV 2 mL 4 MG IVP (16:52)
[2024-11-25] MEDS: morphine 4 mg/mL SDV 1 mL IVP (16:52)
--- NOTE | 2024-11-25 16:56 | ED_ITS ---
HPI - Abdominal Pain 2 General: Chief Complaint: Abdominal Pain Stated Complaint: hernia change color, pain Time Seen by Provider: 11/25/24 16:37 Source: patient Mode of arrival: ambulatory Limitations: no limitations History of Present Illness: 49-year-old male states he has had a her lyndon in the past. He states he had had an ex lap done in the of his abdomen is had an umbilical hernia states that he started a new job 3 months ago requires quite a bit of physical labor and has been having increasing abdominal pain especially at his hernia site states pains been sharp in nature rates the pain a 4-10 denies any fever denies any vomiting. Associated Symptoms: Denies chills, diarrhea, fever(s), nausea and vomiting Related Data Previous Rx's Medication Instructions Recorded gabapentin 300 mg capsule 300 mg PO TID #90 caps 10/04/23 cyclobenzaprine 10 mg tablet See Rx Instructions .Route 12/07/23 .COMPLEX #30 tabs mirtazapine 15 mg tablet 15 mg PO DAILY #30 tabs 12/22/23 ondansetron HCl 4 mg tablet 4 mg PO QID PRN nausea and 12/22/23 vomiting #30 tabs Ventolin HFA 90 mcg/actuation See Rx Instructions .Route 01/17/24 aerosol inhaler (albuterol sulfate) .COMPLEX #18 grams omeprazole 20 mg capsule,delayed See Rx Instructions .Route 02/17/24 release .COMPLEX #60 caps Advair Diskus 250 mcg-50 mcg/dose See Rx Instructions .Route 05/26/24 powder for inhalation (fluticasone .COMPLEX #60 ea propion-salmeterol) tamsulosin 0.4 mg capsule See Rx Instructions .Route 05/26/24 .COMPLEX #30 caps cetirizine 10 mg tablet (Allergy See Rx Instructions .Route 11/08/24 Relief (cetirizine)) .COMPLEX #90 tabs Allergies Allergy/AdvReac Type Severity Reaction Status Date / Time azithromycin Allergy ADR-Nausea Verified 03/22/24 14:01 erythromycin base Allergy ALGY-Rash Verified 12/22/23 08:17 Review of Systems 2 Const: Denies: fever(s), chills, body aches or change in appetite ENMT: Denies: throat pain or dental pain Card: Denies: chest pain Resp: Denies: dyspnea GI: Reports: abdominal pain; Denies: nausea, vomiting or diarrhea Musc: Denies: neck pain or back pain Skin/Breast: Denies: rash Neuro: Denies: headache(s) PFSH ED 2 PFSH: Medical History GERD (gastroesophageal reflux disease) Hepatitis C was treated in 2016 Asthma Central slip extensor tendon injury (boutonniere) No pertinent past medical history Social History Smoking and tobacco/nicotine status: tobacco/nicotine user, details unknown cigarettes Packs smoked per day: 0.5 Years cigarettes smoked: 24 Substance/Drug Use: former Date of last use: 2 MONTHS AGO, METH Household members: significant other Marital status: Life Partner Current occupational status: employed Current occupation: [employer] Current gender identity: Male Special miguelangel needs: No Physical Exam 2 Const: COMMON NORMALS: no acute distress, patient oriented x3 and healthy appearing HENMT: COMMON NORMALS: normocephalic and atraumatic HEAD & SCALP: n ormocephalic and atraumatic Eye: COMMON NORMALS: conjunctivae normal CONJUNCTIVA: Yes conjunctivae normal Neck/C-Spine: COMMON NORMALS: full ROM and supple Chest: COMMONS NORMALS: normal inspection of the chest Resp: COMMON NORMALS: normal respiratory effort Cardio: COMMON NORMALS: regular rate, regular rhythm and No murmurs present (Cardio) RATE: regular rate RHYTHM: regular rhythm GI: COMMON NORMALS: Normal to inspection, nondistended, normoactive bowel sounds present, Soft to palpation and no masses PALPATION: Yes Soft to palpation Extremity: COMMON NORMALS: normal to inspection and full ROM Neuro: COMMON NORMALS: patient oriented x3, moves all extremities and no focal motor deficits Psych: COMMON NORMALS: mental status grossly normal, Normal thought process present and cooperative THOUGHT PROCESS: Normal thought process present Skin: COMMON NORMALS: no rashes or lesions noted and no wounds GENERAL SKIN EXAM: no rashes or lesions noted Course 2 Vital Signs: Vital signs: Vital Signs Temperature 97.7 F 11/25/24 14:48 Pulse Rate 53 L 11/25/24 18:02 Respiratory Rate 17 11/25/24 16:52 Blood Pressure 113/63 11/25/24 18:02 Pulse Oximetry 95 11/25/24 18:02 Oxygen Delivery Me thod Room Air 11/25/24 16:52 MDM - Abdominal Pain Medical Decision Making Patient presents here with abdominal pain CT scan here is negative blood works normal as well patient stable for discharge follow-up PCP return if worsening. Medical Records I reviewed the patient's medical records. Lab Data I reviewed the patient's lab results. 11/25/24 15:38 11/25/24 15:38 Labs/Radiology: Radiology Impressions Abdomen/Pelvis CT 11/25/24 16:40 IMPRESSION: 1. No definite acute intra-abdominal or pelvic pathology. There is suggestion of mild wall thickening in the distal esophagus and a small adjacent hiatal hernia of the stomach. Correlate clinically for evidence of an esophagitis. 2.Other incidental and/or chronic findings as detailed above. Laboratory Results WBC 4.98 10^3/uL (3.29-11.43) 11/25/24 15:38 RBC 4.95 10^6/uL (3.85-5.65) 11/25/24 15:38 Hgb 15.30 g/dL (11.27-16.99) 11/25/24 15:38 Hct 43.9 % (37-53) 11/25/24 15:38 MCV 88.7 fl (82-101) 11/25/24 15:38 MCH 30.9 pg (27-33) 11/25/24 15:38 MCHC 34.9 g/dL (30-55) 11/25/24 15:38 RDW 12.3 % (12.1-15.1) 11/25/24 15:38 Plt Count 203 10^3/cmm (157-399) 11/25/24 15:38 MPV 10.1 fL (7.4-10.4) 11/25/24 15:38 Neut % (Auto) 48.4 % 11/25/24 15:38 Lymph % (Auto) 39.2 % 11/25/24 15:38 Davie % (Auto) 6.4 % 11/25/24 15:38 Eos % (Auto) 4.4 % 11/25/24 15:38 Baso % (Auto) 0.8 % 11/25/24 15:38 Neut # (Auto) 2.41 10^3/uL (1.8-7.7) 11/25/24 15:38 Lymph # (Auto) 2.0 10^3/uL (0.8-4.8) 11/25/24 15:38 Davie # (Auto) 0.3 10^3/uL (0.2-0.9) 11/25/24 15:38 Eos # (Auto) 0.2 10^3/uL (0.0-0.8) 11/25/24 15:38 Baso # (Auto) 0.0 10^3/uL (0.0-0.1) 11/25/24 15:38 Nucleated RBC % (auto) 0 % 11/25/24 15:38 Nucleated RBCs # 0.0 /100WBC 11/25/24 15:38 Sodium 141 mmol/L (136-145) 11/25/24 15:38 Potassium 4.1 mmol/L (3.5-5.1) 11/25/24 15:38 Chloride 104 mmol/L (98-107) 11/25/24 15:38 Carbon Dioxide 25 mmol/L (22-29) 11/25/24 15:38 Anion Gap 16.1 (5-19) 11/25/24 15:38 BUN 14 mg/dL (6-20) 11/25/24 15:38 Creatinine 1.3 mg/dL (0.7-1.2) H 11/25/24 15:38 GFR Calculation 58.7 mL/min (90-130) L 11/25/24 15:38 Glucose 99 mg/dL (65-115) 11/25/24 15:38 Calculated Osmolality 293 mOsm/kg (285-295) 11/25/24 15:38 Calcium 9.0 mg/dL (8.5-10.5) 11/25/24 15:38 Total Bilirubin 0.2 mg/dL (0.15-1.2) 11/25/24 15:38 AST 16 U/L (0-40) 11/25/24 15:38 ALT 18 U/L (0-41) 11/25/24 15:38 Alkaline Phosphatase 89 U/L (40-130) 11/25/24 15:38 Total Protein 6.7 g/dL (6.6-8.7) 11/25/24 15:38 Albumin 4.4 g/dL (3.5-5.2) 11/25/24 15:38 Globulin 2.3 g/dL (1.3-4.6) 11/25/24 15:38 Lipase 23 U/L (13-60) 11/25/24 15:38 All radiology interpretation(s) finalized by discharge Discharge Plan Discharge Patient Disposition: Home Clinical Impression: Abdominal pain Condition: Stable Prescriptions: No Action mirtazapine 15 mg tablet 15 mg PO DAILY Qty: 30 0RF ondansetron HCl 4 mg tablet 4 mg PO QID PRN (Reason: nausea and vomiting) Qty: 30 0RF gabapentin 300 mg capsule 300 mg PO TID Qty: 90 2RF cyclobenzaprine 10 mg tablet See Rx Instructions .ROUTE .COMPLEX Qty: 30 0RF Dose Instruction: Take 1 tablet by mouth three times daily as needed for muscle spasm Rx Instructions: Take 1 tablet by mouth three times daily as needed for muscle spasm albuterol sulfate [Ventolin HFA] 90 mcg/actuation HFA aerosol inhaler See Rx Instructions .ROUTE .COMPLEX Qty: 18 2RF Dose Instruction: INHALE 2 PUFFS BY MOUTH 4 TIMES DAILY NEEDED FOR SHORTNESS OF BREATH FOR WHEEZING Rx Instructions: INHALE 2 PUFFS BY MOUTH 4 TIMES DAILY NEEDED FOR SHORTNESS OF BREATH FOR WHEEZING omeprazole 20 mg capsule,delayed release(DR/EC) See Rx Instructions .ROUTE .COMPLEX Qty: 60 5RF Dose Instruction: Take 1 capsule by mouth twice daily Rx Instructions: Take 1 capsule by mouth twice daily Advair Diskus 250-50 mcg/dose blister with device See Rx Instructions .ROUTE .COMPLEX Qty: 60 2RF Dose Instruction: INHALE 1 DOSE BY MOUTH TWICE DAILY Rx Instructions: INHALE 1 DOSE BY MOUTH TWICE DAILY tamsulosin 0.4 mg capsule See Rx Instructions .ROUTE .COMPLEX Qty: 30 2RF Dose Instruction: Take 1 capsule by mouth once daily Rx Instructions: Take 1 capsule by mouth once daily cetirizine [Allergy Relief (cetirizine)] 10 mg tablet See Rx Instructions .ROUTE .COMPLEX Qty: 90 0RF Dose Instruction: TAKE 1 TABLET BY MOUTH ONCE DAILY FOR ALLERGY SYMPTOMS Rx Instructions: TAKE 1 TABLET BY MOUTH ONCE DAILY FOR ALLERGY SYMPTOMS Discharge Orders: Discharge ED (Routine); Ordered 11/25/24 Ordered By: Gail Foley Referrals: Daniela Schmid, [employer] [Primary Care Provider] - 4-7 days Discharge Diet: Advance as tolerated Discharge Activity: Resume usual activity Patient Instructions: Abdominal Pain (ED) Coding Level of Care 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
[2024-11-25] MEDS: iohexol 350 mg/mL 500 mL Btl (per mL) IV (17:01)
[2024-11-25 18:02] VITALS: BP 113/63; PULSE 53; O2SAT 95
[2024-11-25 18:45] VITALS: BP 114/54; PULSE 60; O2SAT 97
== END 2024-11-25 18:46 | disposition home or self-care (01) ==
PROVIDERS: Emergency Provider Emergency Medicine; PCP Nurse Practitioner Family
DX: R10.9 Unspecified abdominal pain (principal); F17.210 Nicotine dependence, cigarettes, uncomplicated
CPT/HCPCS: 36415; 74177; 80053; 83690; 85025; 96374; 96375; 99285; J2270; J2405

== ENCOUNTER 2025-01-01 05:57 | Day surgery (SDC) | payer BC, MEDICAID, SELFPAY ==
[2025-01-01] VITALS (11 sets, daily range): BP systolic 100–136; BP diastolic 60–93; PULSE 52–66; RESP 18–20; TEMP 36.1–36.6; O2SAT 93–98; BMI 25.0
--- NOTE | 2025-01-01 05:41 | W.PM.OPSUD ---
Surgery/Procedure H&P Update DATE OF PROCEDURE: January 01, 2025 DATE H&P PERFORMED: 12/19/24 H&P UPDATE INFORMATION: I have reviewed H&P completed within last 30 days, I have examined patient prior to procedure, No changes to prior documentation and H&P is in [facility] EMR on date indicated PLANNED PROCEDURE: Operation Date: 01/01/25 07:00 Proposed Procedures p Laparoscopic Ventral Hernia Repair/ possible open with mesh [id number], K46.9(Not Applicable) - Brooks Simmons MD
[2025-01-01 06:59] LABS: Amphetamines Screen Urine Negative (Negative); Barbiturates Screen Urine Negative (Negative); Benzodiazepines Screen Urine Negative (Negative); Cocaine Screen Urine Negative (Negative); Opiate Screen Urine Negative (Negative); PCP Screen Urine Negative (Negative); THC Screen Urine Negative (Negative)
--- NOTE | 2025-01-01 06:59 | ANES.PREANE2 ---
Pre-Anesthetic Assessment Height/Weight: Height 1.88 m Weight 88.451 kg Temp Pulse Resp BP Pulse Ox O2 Del Method 97.8 F 62 18 136/93 95 Room Air 01/01/25 06:08 01/01/25 06:08 01/01/25 06:08 01/01/25 06:08 01/01/25 06:08 01/01/25 06:12 Operation Date: 01/01/25 07:00 Proposed Procedures p Laparoscopic Ventral Hernia Repair/ possible open with mesh [id number], K46.9(Not Applicable) - Brooks Simmons MD Familial anesthetic complications: None Was Beta Maxi taken within 24 hours: N/A Was Clonidine taken within 24 hours: N/A Last intake: Intake Last Liquid Date 12/31/24 Last Liquid Time 21:00 Last Solid Date 12/31/24 Last Solid Time 18:00 Social Tobacco and No alcohol Hx meth Exam alert, oriented x 3, clear to auscultation bilaterally and regular rate & rhythm Airway Mallampati: Class III Dentition: false Pulmonary Asthma CV/HEM able to achieve > 4 METS, able to jog Anesthetic Plan ASA status: 3 Anesthesia: General Risk of > 500 ml blood loss (7ml/kg in children): No Medications/Allergies Home Medications Medication Instructions Recorded Confirmed Last Taken Type diclofenac sodium 75 mg 75 mg PO ONCE 12/19/24 12/28/24 01/01/25 05:00 History tablet,delayed release albuterol sulfate 90 mcg/actuation 2 puff inhalation QID PRN sob 12/28/24 12/28/24 12/31/24 History aerosol inhaler (Ventolin HFA) cetirizine 10 mg tablet (Allergy 10 mg PO DAILY 12/28/24 12/28/24 01/01/25 05:00 History Relief (cetirizine)) fluticasone 250 mcg-salmeterol 50 1 inh inhalation BID 12/28/24 12/28/24 01/01/25 05:00 History mcg/dose blistr powdr for inhalation (Advair Diskus) omeprazole 20 mg capsule,delayed 20 mg PO BID 12/28/24 12/28/24 01/01/25 05:00 History release tamsulosin 0.4 mg capsule 0.4 mg PO DAILY 12/28/24 12/28/24 01/01/25 05:00 History Allergies Allergy/AdvReac Type Severity Reaction Status Date / Time azithromycin Allergy ADR-Nausea Verified 12/19/24 10:49 erythromycin base Allergy ALGY-Rash Verified 12/19/24 10:49 [facility] Anesthesia Medical History GERD (gastroesophageal reflux disease) Hepatitis C was treated in 2016 Asthma Central slip extensor tendon injury (boutonniere) No pertinent past medical history Family History (Updated 12/19/24 @ 10:[address]) Father Colon cancer Social History Smoking and tobacco/nicotine status: never used tobacco/nicotine Substance/Drug Use: former Date of last use: 2 MONTHS AGO, METH Household members: significant other Marital status: Life Partner Current occupational status: employed Current occupation: [employer] Current gender identity: Male Special miguelangel needs: No Data Anesthesia Cardiac Studies: No Data to Display
[2025-01-01] MEDS: sodium chloride 0.9% 1,000 ML 30 ML IV (07:14)
[2025-01-01] MEDS: ceFAZolin 2,000 mg SDV 2000 MG IVP (07:27)
[2025-01-01] MEDS: BUPivacaine 0.25% INJ 30 mL INJECTION (08:25)
[2025-01-01] MEDS: lidocaine-epi 1% 20 mL INJ INJECTION (08:25)
--- NOTE | 2025-01-01 09:11 | P.OP_ITS ---
Operative Report Date of procedure: January 01, 2025 Pre-op diagnosis: Ventral incisional hernia Post-op diagnosis: Umbilical hernia Post-op findings: There was a 1.5 cm umbilical hernia containing fat Procedure done: Open umbilical hernia repair with mesh Implants: 4.3 cm Ventralex mesh Specimens removed/disposition: None Surgeon: Brooks Simmons MD State Epidemiologist: ANIL OR Staff Estimated blood loss: 10 Brief History: This is a 49-year-old male presents to our office for evaluation of a abdominal wall hernia. Patient had history of previous ex lap and hernia located near the umbilicus. After workup we decided to proceed to the OR for laparoscopic, possible open ventral hernia pair with mesh. Procedure: Patient was brought into the OR, he was placed in a supine position. General anesthesia was given. At this point he proceeded to do another exam, the hernia appeared to be incarcerated during my preop examination valve with the patient asleep and with careful manipulation I was able to reduce the hernia once I reduce the hernia I noticed that the hernia defect was very small probably about 1 to 1.5 cm and appeared to be right through the umbilical stalk rather than through the previous incision therefore I decided to proceed with an open repair rather than a laparoscopic repair with mesh. The abdomen was prepped and draped in the usual sterile fashion, a timeout was conducted. A semilunar infraumbilical incision was made, the incision was taken down all the way to the level of the fascia. Umbilical stalk was then encircled with a Kristy clamp. I then proceeded to carefully transect umbilical stalk taking careful consideration of not opening the hernia sac and not injuring the skin. Once umbilicus was elevated, the hernia was visible. The defect measured about 1.5 cm. With careful circumferential dissection I cleared the fascial edges. I then reduced the hernia and proceeded to develop the preperitoneal space with blunt dissection. Hemostasis was verified. I then proceeded to insert out 4.3 cm Ventralex mesh into the properitoneal space. The overlying fascia was then closed with #0 Prolene incorporating the superficial layer of the mesh as well a s the tail of the mesh into the closure. Once the hernia requires repair local anesthesia was infiltrated. Hemostasis was verified and the wound was irrigated with saline. I then proceeded to tack the umbilicus to the fascia with #2-0 Vicryl. The subcutaneous tissue was then closed in layers using #2 Vicryl for the deep layer #3-0 Vicryl for the superficial layer and 4 Monocryl was used to close the skin. Dermabond was applied and a sterile dressing was placed. At the end of the procedure all counts were correct, the patient tolerated well the procedure was transferred to PACU in stable condition.
[2025-01-01] MEDS: oxyCODONE 5 mg IR Tab/Cap PO (09:47)
--- NOTE | 2025-01-01 10:25 | ANE.PACU2 ---
Inpatient post-anesthesia follow up: Vital signs: Temperature 97.5 F Pulse Rate 54 Respiratory Rate 18 Blood Pressure 116/80 Pulse Oximetry 98 Oxygen Delivery Me thod Room Air Oxygen Flow Rate 8 Fraction of Inspir ed Oxygen
== END 2025-01-01 10:25 | disposition home or self-care (01) ==
PROVIDERS: Anesthesiology; PCP Nurse Practitioner Family; Visit Provider Surgery
PROC: 0WQF4ZZ Repair Abdominal Wall, Percutaneous Endoscopic Approach (ICD-10-PCS; CPT 49591; principal; 2025-01-01 07:00)
DX: K42.9 Umbilical hernia without obstruction or gangrene (principal); Z79.899 Other long term (current) drug therapy
CPT/HCPCS: 49591; 80306; J0690; J1100; J1885; J2405; J2704; J3490; J7030

== ENCOUNTER → 2025-03-27 14:29 | Outpatient (BNVA) | payer BC, MEDICAID, SELFPAY | PROVIDERS: PCP Nurse Practitioner Family; Visit Provider Nurse Practitioner Family | DX: F41.1 Generalized anxiety disorder (principal); K21.9 Gastro-esophageal reflux disease without esophagitis; Z12.5 Encounter for screening for malignant neoplasm of prostate; F19.91 Other psychoactive substance use, unspecified, in remission | CPT/HCPCS: 80053; 80061; 84443; 85025; 86705; 86706; 86709; 86803; 87340; 87806; G0103 ==

== ENCOUNTER → 2025-03-28 21:37 | Outpatient (BNVA) | payer BC, MEDICAID, SELFPAY | PROVIDERS: PCP Nurse Practitioner Family; Visit Provider Nurse Practitioner Family | DX: F19.91 Other psychoactive substance use, unspecified, in remission (principal) | CPT/HCPCS: 87522 ==

== ENCOUNTER 2025-04-25 15:10 | Outpatient (CLI) | payer BC, MEDICAID, SELFPAY ==
--- NOTE | 2025-04-25 15:15 | US_ITS ---
WS: [id number] Subcutaneous ultrasound of anterior left wrist, 04/25/2025 Clinical Data: MASS OF DISTAL FOREARM BECOMING TENDER TO THE TOUCH Comparison: None. Findings: Only normal subcutaneous tissue is seen. There were no cysts or masses. US/US soft tissue/extremity [id number] Impression: Normal subcutaneous ultrasound of the left anterior wrist.
--- NOTE | 2025-04-25 16:00 | CT_ITS ---
WS: [id number] LDCT LUNG CANCER SCREENING TECHNIQUE: Noncontrast CT of the chest with coronal and sagittal reformatted images. CLINICAL INFORMATION: F17.210 - Nicotine dependence, cigarettes, uncomplicated COMPARISON: None. DLP: 80.11 mGy.cm DIvol: Mean CTDIvol: 1.60 (mGy) All CT scans at [facility] use at least one of these dose optimization techniques: automated exposure control; mA and/or kV adjustment per patient size (includes targeted exams where dose is matched to clinical indication); or iterative reconstruction. FINDINGS: 3 mm subpleural nodule RIGHT upper lobe posteriorly. 4 mm nodule RIGHT lung apex. Fibrosis in both lung apices. 5 mm nodule LEFT lung apex. Subsegmental atelectasis in the lingula. A few calcified granulomas. Normal caliber thoracic aorta. No mediastinal or hilar lymphadenopathy. No axillary lymphadenopathy. Splenic granulomas. Small esophageal hiatal hernia. Adrenal glands are normal. Mild thoracic curve. Mild thoracic kyphosis. Endplate Schmorl's nodes in the midthoracic spine. CT/CT lung screening [id number] IMPRESSION: LUNG-RADS: 2-Benign Appearance or Behavior FOLLOW UP: 12 Month: Continue annual screening with LDCT
== END 2025-04-25 15:11 | disposition home or self-care (01) ==
LOC: RAD 15:10
PROVIDERS: PCP Nurse Practitioner Family; Visit Provider Nurse Practitioner Family
DX: Z12.2 Encounter for screening for malignant neoplasm of respiratory organs (principal); F17.210 Nicotine dependence, cigarettes, uncomplicated; D48.5 Neoplasm of uncertain behavior of skin; R91.8 Other nonspecific abnormal finding of lung field; J84.10 Pulmonary fibrosis, unspecified; J98.11 Atelectasis; D73.89 Other diseases of spleen; K44.9 Diaphragmatic hernia without obstruction or gangrene; M43.8X4 Other specified deforming dorsopathies, thoracic region; M40.294 Other kyphosis, thoracic region; M51.44 Schmorl's nodes, thoracic region
CPT/HCPCS: 71271; 76882